=== PATIENT | female | born 1975 | race Caucasian/White ===

== ENCOUNTER → 2023-10-30 09:22 | Outpatient (REF) | payer BC, SELFPAY | LOC: HWWDC 09:22 | PROVIDERS: ATTENDING PHYSICIAN Physician Assistant; FAMILY PHYSICIAN Family Medicine | DX: Z12.31 Encounter for screening mammogram for malignant neoplasm of breast (principal) | CPT/HCPCS: 77063; 77067 ==

== ENCOUNTER → 2025-02-01 19:37 | Outpatient (REF) | payer OTHER, SELFPAY | LOC: WDC 19:37 | PROVIDERS: ATTENDING PHYSICIAN Family Medicine | DX: Z12.31 Encounter for screening mammogram for malignant neoplasm of breast (principal) | CPT/HCPCS: 77063; 77067 ==

== ENCOUNTER 2025-05-10 16:15 | Emergency (ER) | payer OTHER, SELFPAY ==
[2025-05-10 16:20] VITALS: BP 122/94
[2025-05-10 19:11] VITALS: BP 124/89
--- NOTE | 2025-05-10 19:23 | ED.GENMED ---
History of Present Illness
General
Chief Complaint: Head Injury
Time Seen by Provider: 05/10/25 19:09
History of Present Illness
History of Present Illness:
FOCUSED PAST MEDICAL HISTORY
- History of bipolar, depression
REVIEW OF OLD RECORDS
- I reviewed records, the patient gave here in 2011
Note:
CHIEF COMPLAINT(S)
Headache and nausea following head trauma.
HISTORY OF PRESENT ILLNESS
The patient is a 50-year-old female who presents with complaints of headache and nausea following a head injury. The event occurred on Friday when a metal bar from a closet, which was not secured, fell and struck her on the head. The patient
describes the bar as not terribly heavy but enough to cause concern. Since the incident, the patient has experienced persistent head pain, nausea, and a sense of not feeling right, stating, 'I just havent felt myself.' She reports a sensation as if
her nose is on the verge of bleeding, contributing to significant discomfort.
The patient, who is a after school program director, attempted to continue her daily activities but noted difficulties due to her symptoms. The bouts of nausea have persisted, causing her to feel uneasy, though she has not received any medication for it yet. A
computed tomography (CT) scan was performed and showed no signs of intracranial bleeding. The symptoms and their persistence are consistent with a minor concussion. She reports a feeling of pressure in her head, particularly when lying down, though
sleep itself remains unproblematic.
The patient has been advised to rest adequately, minimizing activities such as using digital devices or watching television, which might exacerbate her symptoms. Given the ongoing discomfort and nausea, rest and a brief period off work were
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 A note for absence from work was offered for her consideration.
PHYSICAL EXAM
General: Alert, no acute distress.
Skin: Warm, dry.
Head: Some subtle older appearing ecchymosis noted to the central forehead
Neck: Supple, trachea midline.
Eye, Ears, Nose, Mouth, and Throat: Oral mucosa moist.
Cardiovascular: Normal peripheral perfusion, no edema. No chest wall tenderness
Respiratory: Respirations are non-labored.
Gastrointestinal: Abdomen nondistended.
Back: Normal range of motion, normal alignment.
Musculoskeletal: Normal range of motion, normal strength.
Neurological: Alert and oriented to person, place, time, and situation. No focal neurological deficit observed.
Psychiatric: Cooperative, appropriate mood & affect.
PLAN
- Rest as the primary intervention, advising minimal physical and mental exertion to aid in recovery from concussion symptoms.
- Consider taking time off from work to facilitate recovery, suggested absence through for recuperation.
- Provide a work note for excused absence as needed.
- Consider Tylenol or Ibuprofen for headache relief if required.
- Offer anti-nausea medication prescription if symptoms persist.
- Close monitoring of symptoms and follow-up with primary care physician if no improvement is noted by the end of the week.
DIFFERENTIAL DIAGNOSIS
The Differential Diagnosis includes, in no particular order and is not limited to:
- Concussion
- Intracranial bleeding (ruled out by CT scan)
- Intracranial hypertension
- Migraine
- Post-traumatic headache
- Cervical strain from trauma
- Vestibular dysfunction
- Anxiety-related symptom exacerbation
- Sinus headache
- Tension headache
Disposition:
SUMMARY OF ENCOUNTER
The patient, a 50-year-old female, presented to the emergency department with persistent headache and nausea following a head injury sustained when a closets metal bar fell on her head. The symptoms included headache, nausea, and a sensation of
displacement. A CT scan was conducted, which showed no signs of intracranial bleeding. The patients symptoms are consistent with a minor concussion. She was advised to rest and avoid activities that could worsen her symptoms.
ASSESSMENT
The symptoms, including headache, nausea, and the sensation of pressure, align with a diagnosis of a concussion.
PLAN
The patient is recommended to rest, minimizing physical and mental exertion to aid in recovery. Time off from work is suggested to allow recuperation. Bwwh-skl-pxydvhr analgesics such as acetaminophen (Tylenol) or ibuprofen can be considered for
headache relief if required. An anti-nausea medication prescription is offered if symptoms persist. Close monitoring of symptoms and follow-up with her primary care physician is advised if there is no improvement by weeks end.
INDEPENDENT REVIEW OF LABS AND INTERPRETATION OF TESTS
My independent interpretation of the CT scan indicates no signs of intracranial bleeding.
FOLLOW-UP INSTRUCTIONS
The patient is advised to follow up with her primary care physician if symptoms do not improve by the end of the week. Close monitoring is recommended.
MEDICAL DECISION MAKING
- Number and Complexity of Problems Addressed: Concussion, with consideration of post-traumatic headache and sinus or tension headache.
- Data:
- Category 1: My independent review of the CT scan indicates no signs of intracranial bleeding.
- Category 3: Based on my examination, I determined that the patients symptoms support a concussion diagnosis.
- Risk: Prescription drug management or therapy requiring monitoring for toxicity was considered for control of symptoms; however, the patient declined medications.
DIAGNOSIS
Concussion, unspecified (ICD-10: S06.0X0A).
RADIOLOGY
- CAT scan of the brain shows no acute abnormality
Past History
Past History
ED Past Medical History: Other (Patient has a 4 month )
ED Past Surgical History: None
Social History
Tobacco: Non-smoker
Alcohol: None
Drug: None
Personal:
Living: with family
Employment: Employed
Family History
Family History: Other
Phy Exam
Physical Exam
Physical Exam:
See HPI
Course
Orders/Labs/Results
Orders:
Orders
05/10/25 16:[address] [CT Head W/o Iv Contrast] Urgent
Comment:
Reason For Exam: head trauma
Vital Signs
Initial and Last Documented VS:
Initial Vital Signs
Temp Pulse Resp BP Pulse Ox
36.8 C 99 15 122/94 98
05/10/25 16:20 10/21/25 16:20 05/10/25 16:20 05/10/25 16:20 05/10/25 16:20
Last Documented Vital Signs
Temp Pulse Resp BP Pulse Ox
36.8 C 87 16 124/89 99
05/10/25 16:20 05/10/25 19:11 05/10/25 19:11 05/10/25 19:11 05/10/25 19:11
*Pulse Oximetry
SaO2: 99
Oxygen Mode of Delivery: Room air
Patient hypoxic: no
*Critical Care Note
Total Time (30-74mins, 75-104mins- exclusive of procedures): Not Applicable
ED Attending Note
-
Portions of this chart may have been created with voice recognition software.� Occasional wrong word or��sound alike� substitutions may have occurred due to the inherent limitations of voice recognition software.
Discharge Plan
Departure
Patient Disposition: Home (Routine Discharge)
Date of Disposition: 05/10/25
Time of Disposition: 19:20
Patient with high blood pressure during this ER visit?: Yes
Discharge Problem:
Concussion
Instructions: Concussion, Adult (DC), BLOOD PRESSURE
Prescriptions:
No Action
vit-iron fum-folic ac [ Tablet] 1 EACH tablet
1 ea PO DAILY
Stand Alone Forms: Return to Work
Activity Restrictions/Additional Instructions:
The CAT scan of your brain was normal. Based on description of your symptoms, I suspect you do have a concussion.
Interventions
Interventions:
*Risk Screen - Suicide Last Done: 05/10/25 16:20
*General Assessment Last Done: 05/10/25 16:20
*Neglect/Abuse Screening Last Done: 05/10/25 16:20
*ED- Fall Risk Assessment Last Done: 05/10/25 19:11
*ED COVID-19 Vaccine History Last Done: 05/10/25 16:20
*ED Influenza Vaccine History Last Done: 05/10/25 16:20
ED- Neurological Assessment Last Done: 05/10/25 19:11
ED-Skin Assessment Last Done: 05/10/25 19:11
Discharge Date and Time
Print Language: POLISH
== END 2025-05-10 19:32 | disposition home or self-care (01) ==
LOC: EMR 16:15
PROVIDERS: EMERGENCY PHYSICIAN Emergency Medicine; FAMILY PHYSICIAN Family Medicine
DX: S06.0XAA Concussion with loss of consciousness status unknown, initial encounter (principal); W22.09XA Striking against other stationary object, initial encounter
CPT/HCPCS: 99284; 70450